=== PATIENT | female | born 1995 | race Caucasian/White ===

== ENCOUNTER 2017-05-28 12:18 | Emergency (ER) | payer MEDICAID ==
[2017-05-28] MEDS ORDERED: ACETAMINOPHEN 325 MG TABLET PO ONE (13:01)
--- NOTE | 2017-05-28 13:02 | ER Document Report ---
HPI - HPI Patient complains to provider of: Sore throat Onset: Other - 2 days Onset/Duration: Persistent Quality of pain: Achy Pain Level: 3 Context: Patient presents complaining of sore throat for the past 2 days. Patient denies any fever. Patient wants to be certain she does not have strep. Associated Symptoms: Sore throat. denies: Fever Exacerbated by: Denies Relieved by: Denies Similar symptoms previously: Yes Recently seen / treated by doctor: No - ROS ROS below otherwise negative: Yes Systems Reviewed and Negative: Yes All other systems reviewed and negative - CONSTITUTIONAL Constitutional: DENIES: Fever - EENT EENT: REPORTS: Sore Throat - RESPIRATORY Respiratory: DENIES: Coughing - GASTROINTESTINAL Gastrointestinal: DENIES: Nausea, Patient vomiting - REPRODUCTIVE LMP: 8 months preg Reproductive: DENIES: : - MUSCULOSKELETAL Musculoskeletal: DENIES: Back Pain, Neck Pain - DERM Skin Color: Normal Skin Problems: None Past Medical History - General Information source: Patient - Social History Smoking Status: Never Smoker Frequency of alcohol use: None Drug Abuse: None 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 IN LAST 30 DAYS: No - HEENT HEENT: Atraumatic, Normocephalic, Pharyngeal Tenderness, Pharyngeal Erythema. negative: Pharyngeal Exudate - NECK Neck: Normal Inspection, Supple. negative: Lymphadenopathy-Left, Lymphadenopathy-Right - RESPIRATORY Respiratory: Breath Sounds Normal, No Respiratory Distress O2 Sat by Pulse Oximetry: 98 - CARDIOVASCULAR Cardiovascular: Regular Rate, Regular Rhythm, No Murmur - MUSCULOSKELETAL/EXTREMETIES Musculoskeletal/Extremeties: MAEW - NEURO Level of Consciousness: Awake, Alert, Appropriate Motor/Sensory: No Motor Deficit - DERM Integumentary: Warm, Dry, No Rash Course - Vital Signs Vital signs: Temp Pulse Resp BP Pulse Ox 98.8 F 86 16 110/78 98 05/28/17 12:32 05/28/17 12:32 05/28/17 12:32 05/28/17 12:32 05/28/17 12:32 - Laboratory Laboratory results interpreted by me: 03/02/18 14:13 Labs- Entire Visit 05/28/17 13:00 Group A Strep Rapid NEGATIVE Discharge - Discharge Clinical Impression: Sore throat (viral) Condition: Stable Disposition: HOME, SELF-CARE Instructions: Acetaminophen, Sore Throat ([facility]) Additional Instructions: Return immediately for any new or worsening symptoms Followup with your primary care provider, call tomorrow to make a followup appointment Throat culture is pending, we will call if you need any different treatment Forms: Return to Work Referrals: NAVIN DAS MD [Primary Care Provider] - 05/31/17
[2017-05-28 14:25] VITALS: BP 108/76
== END 2017-05-28 14:23 | disposition home or self-care (01) ==
LOC: ER 12:18
DX: J02.9 Acute pharyngitis, unspecified (principal); B97.89 Other viral agents as the cause of diseases classified elsewhere
CPT/HCPCS: 99283; 87070; 87880; J3490

== ENCOUNTER 2017-06-07 13:55 | Inpatient (IN) | payer MEDICAID ==
[2017-07-19] MEDS ORDERED: DINOPROSTONE 10 MG VAGINAL INSERT.SR ONE (23:30)
[2017-07-19 23:44] LABS: ABSOLUTE BASOPHILS # (AUTO) 0.1 10^3/uL (0.0-0.2); ABSOLUTE EOSINOPHILS # (AUTO) 0.2 10^3/uL (0.0-0.6); ABSOLUTE MONOCYTES (AUTO) 1.2 10^3/uL (0.1-1.4); ABSOLUTE NEUT (AUTO) 9.7 10^3/uL (1.7-8.2); BASOPHILS % (AUTO) 0.6 % (0-2); EOSINOPHILS % (AUTO) 1.3 % (0-6); HEMATOCRIT 35.2 % (36.0-47.0); HEMOGLOBIN 12.1 g/dL (12.0-15.5); LYMPHOCYTES % (AUTO) 15.3 % (13-45); MEAN CORPUSCULAR HEMOGLOBIN 31.8 pg (27.0-33.4); MEAN CORPUSCULAR HGB CONC 34.5 g/dL (32.0-36.0); MEAN CORPUSCULAR VOLUME 92 fl (80-97); MONOCYTES % (AUTO) 9.2 % (3-13); PLATELET COUNT 225 10^3/uL (150-450); RED BLOOD COUNT 3.82 10^6/uL (3.72-5.28); RED CELL DISTRIBUTION WIDTH 13.5 % (11.5-14.0); SEGMENTED NEUTROPHILS % (AUTO) 73.6 % (42-78); TOTAL CELLS COUNTED % (AUTO) 100 %; WHITE BLOOD COUNT 13.2 10^3/uL (4.0-10.5)
[2017-07-20 00:14] LABS: APPEARANCE,URINE CLOUDY; BILIRUBIN,URINE NEGATIVE (NEGATIVE); COLOR,URINE YELLOW; GLUCOSE, URINE NEGATIVE (NEGATIVE); KETONES,URINE NEGATIVE (NEGATIVE); LEUKOCYTE ESTERASE,URINE LARGE (NEGATIVE); NITRITE,URINE NEGATIVE (NEGATIVE); PROTEIN,URINE NEGATIVE (NEGATIVE); URINE SPECIFIC GRAVITY 1.019; UROBILINOGEN,URINE NEGATIVE mg/dL (<2.0)
[2017-07-20 01:19] LABS: URINE AMPHETAMINES SCREEN NEGATIVE; URINE BARBITURATES SCREEN NEGATIVE; URINE BENZODIAZEPINES SCREEN NEGATIVE; URINE COCAINE SCREEN NEGATIVE; URINE MARIJUANA (THC) SCREEN NEGATIVE; URINE METHADONE SCREEN NEGATIVE; URINE PHENCYCLIDINE SCREEN NEGATIVE
[2017-07-20] MEDS ORDERED: PROMETHAZINE HCL INJ 25 MG/1 ML VIAL ONE (04:36)
[2017-07-20] MEDS ORDERED: NALBUPHINE HCL INJ 10 MG/1 ML AMPULE ONE (04:36)
[2017-07-20] MEDS ORDERED: NALBUPHINE HCL INJ 10 MG/1 ML AMPULE INJ ONE (04:52)
[2017-07-20] MEDS ORDERED: PROMETHAZINE HCL INJ 25 MG/1 ML VIAL IV ONE (04:52)
--- NOTE | 2017-07-20 09:05 | Admission Physical ---
Datetime Report Generated by CPN: 07/20/2017 09:05 CURRENT ADMISSION Hx Assessment: The History has been Reviewed and is Current Chief Complaint: Scheduled Induction of Labor Indication for Induction: IUGR Admit Impression : Term, Intrauterine ; No Active Labor Admit Plan: Admit to Unit; Initiate Labor Induction Protocol ALLERGIES Medication Allergies: No Medication Allergies: No Known Allergies (05/28/2017) Latex: No Latex Allergies OBSTETRICAL HISTORY EDC: 07/27/2017 00:00 : 1 Para: 0 Term: 0 : 0 SAB: 0 IAB: 0 Ectopic: 0 Livin Cesareans: 0 VBACs: 0 Multiple Births: 0 Gestational Diabetes: No Rh Sensitization: No Incompetent Cervix: No JCARLOS: No Infertility: No ART Treatment: No Uterine Anomaly: No IUGR: Yes Hx Previous C/S: No Macrosomia: No Hx Loss/Stillborn: No PIH: No Hx : No Placenta Previa/Abruption: No Depression/PP Depression: No PTL/PROM: No Post Hemorrhage: No Current Procedures: Ultrasound; NST Obstetrical History Comments: present- EDC 07/27/17 SEE RECORDS Alcohol: No Marijuana : No Cocaine: No Other Illicit Drugs: No Cigarettes: Former Smoker. 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: No Heart Disease: No Hosp/Surgery: No Autoimmune Disorder: No Anesthetic Complications: No Kidney Disease: No Abnormal Pap Smear: No Neuro/Epilepsy: No Psychiatric Disorders: No Other Medical Diseases: No Hepatitis/Liver Disease: No Significant Family History: No Varicosities/Phlebitis: No Trauma/Violence : No Thyroid Dysfunction: No INFECTIOUS HISTORY Gonorrhea: No Genital Herpes: Yes Chlamydia: No Tuberculosis: No Syphilis: No Hepatitis: No Rash or Viral Illness: No HPV: No Infectious History Comments: pt reports she has never had a hsv outbreak, learned of infection through bloodwork PHYSICAL EXAM General: Normal HEENT: Deferred Neurologic: Normal Thyroid: Deferred Heart: Normal Lungs: Normal Breast: Deferred Back: Normal Abdomen: Normal Genitourinary Exam: Normal Extremities: Normal DTRs: Deferred Pelvic Type: Adequate Physical Exam Comments: No signs of active HSV infection noted Vital Signs: Reviewed; Within Normal Limits VAGINAL EXAM Dilatation: 5 Effacement: 80 Station: -1 Contraction Comments: 1.5-3 MEMBRANES Membranes: Ruptured Amniotic Fluid Color: Clear FETUS A EGA: 39.0 Monitoring: External US FHR- Baseline: 130 Variability: Moderate 6-25bpm Accelerations: 10X10 Decelerations: None FHR Category: Category I Presentation: Vertex Admit Comment: 22yo @ 39wga admitted into L_D last night for IOL secondary to IUGR. 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 Hx also significant for XANAX use (stopped with pos. ) and THC on NOB urine but denies current use. Transfered from [place] at 31wga. Had cervidil last night, obtained pain meds earlier this AM with cervidil still in place, SROM on exam, cervidil removed without difficulty. Will shower and requesting epidural at this time. Will continue IOL with pitocin as planned. Pt. asked questions and verbalized undertanding. PLANS FOR LABOR AND DELIVERY Labor and Delivery: None Pain Management: Medications; Epidural Feeding Preference: Breast Benefit of Breast Feed Discussed: Yes Circumcision: N/A INFORMED CONSENT Assignment: Jenise Waller MD Signature: with User ID: Richard : with User ID: [email or web address]
[2017-07-20] MEDS ORDERED: MISOPROSTOL 0.2 MG TABLET ONE (09:42)
[2017-07-20] MEDS ORDERED: LIDOCAINE 1% INJ-PF (10 MG/ML) 30 ML SDV ONE (09:43)
[2017-07-20] MEDS ORDERED: EPHEDRINE SULFATE INJ 50 MG/1 ML AMPULE ONE (09:43)
[2017-07-20] MEDS ORDERED: BUPIVACAINE HCL 0.25 % INJ/PF (2.5 MG/1 ML) 30 ML VIAL ONE (09:43)
[2017-07-20] MEDS ORDERED: PHENYLEPHRINE HCL INJ/PF 10 MG/1 ML SDV ONE (09:43)
[2017-07-20] MEDS ORDERED: FENTANYL CITRATE INJ/PF 100 MCG/2 ML AMPUL ONE (09:43)
[2017-07-20] MEDS ORDERED: OXYTOCIN/NORMAL SALINE 20 UNIT/1,000 ML RTUINJ ONE (09:43)
[2017-07-20] MEDS ORDERED: FENTANYL/BUPIVACAINE/NS/PF 300 MCG/150 ML RTUINJ EPI ONE (09:45)
--- NOTE | 2017-07-20 09:48 | L&D Progress Notes ---
PROGRESS NOTES Datetime Report Generated by CPN: 07/20/2017 09:47 PROGRESS NOTE Comment: Correction: Pt. was not SROM on exam this AM. Pt. SROM'ed at 0422 per RN. Currently awaiting on Epidural placement. VAGINAL EXAM Dilatation: 5 Effacement: 80 Station: -1 Contractions: 1.5-3 MEMBRANES Membranes: Ruptured Amniotic Fluid Color: Clear FETUS A Presentation: Vertex SIGNATURE SIGNATURE: [id number] SIGNATURE: [id number] Assignment: Jenise Waller MD Signature: with User ID: Richard : with User ID: [email or web address]
[2017-07-20] MEDS ORDERED: OXYTOCIN/NORMAL SALINE 20 UNIT/1,000 ML RTUINJ IV PRN ×2 (09:49→14:53)
[2017-07-20] MEDS ORDERED: BENZOCAINE/MENTHOL AEROSOL SPRAY 56 ML TOP PRN (14:53)
[2017-07-20] MEDS ORDERED: PROMETHAZINE HCL 25 MG TABLET PO PRN (14:53)
[2017-07-20] MEDS ORDERED: PSEUDOEPHEDRINE HCL 30 MG TABLET PO PRN (14:53)
[2017-07-20] MEDS ORDERED: DIBUCAINE 1% OINTMENT 28 GM TP PRN (14:53)
[2017-07-20] MEDS ORDERED: ACETAMINOPHEN 325 MG TABLET PO PRN (14:53)
[2017-07-20] MEDS ORDERED: DIPH/PERTUSS(ACELL)/TETANUS VAC/PF 0.5 ML SYR (>=10YO) IM PRN (14:53)
[2017-07-20] MEDS ORDERED: NA PHOS,M-B/NA PHOS,DI-BA (ADULT) 133 ML ENEMA PR PRN (14:53)
[2017-07-20] MEDS ORDERED: MEASLES,MUMPS&RUBELLA VACC/PF 0.5 ML VIAL SUBCUT PRN (14:53)
[2017-07-20] MEDS ORDERED: MAGNESIUM HYDROXIDE SUSP 30 ML UDCUP PO PRN (14:53)
[2017-07-20] MEDS ORDERED: PROMETHAZINE HCL INJ 25 MG/1 ML VIAL IV PRN (14:53)
[2017-07-20] MEDS ORDERED: GLYCERIN/WITCH HAZEL LEAF 1 EACH MED..PAD TP PRN (14:53)
[2017-07-20] MEDS ORDERED: ACETAMINOPHEN WITH CODEINE #3 TABLET PO PRN (14:53)
[2017-07-20] MEDS ORDERED: DIPHENHYDRAMINE HCL 25 MG CAPSULE PO PRN (14:53)
[2017-07-20] MEDS ORDERED: PROMETHAZINE HCL 25 MG SUPP.RECT PR PRN (14:53)
[2017-07-20] MEDS ORDERED: ACETAMINOPHEN 650 MG SUPP.RECT PR PRN (14:53)
[2017-07-20] MEDS ORDERED: ACETAMINOPHEN WITH CODEINE #3 TABLET ONE (15:00)
--- NOTE | 2017-07-20 15:38 | Delivery Summary ---
Del Sum A-C Datetime Report Generated by CPN: 07/20/2017 15:38 DELIVERY PERSONNEL DELIVERY PERSONNEL: [id number] Delivery Doctor:: Mercedes Mora CNM Nurse Materials Engineer Certified:: Mercedes Mora CNM Labor and Delivery Nurse:: Jyothi Barnes, branch account manager Nurse:: LUISITO Connell Nursery Nurse:: Brenda Way RN Sas Statistical Programmer/FILM PAINTER: Daxa Medel, PROFESSIONAL BASS FISHERMAN Additional Personnel: : Marco Robertson, RN MATERNAL INFORMATION Delivery Anesthesia: Epidural Medications After Delivery: Pitocin Bolus-Please Comment Meds After Delivery Comment: Pitocin 20 units in 1 L NS bolusing per order Maternal Complications: None Provider Comments: Pt. progressed to c/c/+2 with urge to push, began pushing and with some coaching went on to deliver a viable baby girl. Baby with vigorous respiratory effort and cry at delivery (nursery personnel present for delivery) and placed skin to skin on maternal abdomen. Cord allowe to stop pulsating then clamped x2 and cut by maternal aunt.Placenta delivered spontaneously intact (3vc, short cord, circumvallate placenta noted, cord blood obtained). Repair as stated. Mother and baby remain in room, skin to skin and bonding at this time. LABOR SUMMARY EDC: 07/27/2017 00:00 No. Babies in Womb: 1 Attempted: No Labor Anesthesia: Epidural LABOR INFORMATION Reason for Induction: Intrauterine Growth Retardation Onset of Labor: 07/20/2017 09:05 Complete Dilatation: 07/20/2017 13:02 Cervical Ripening Agents: Cervidil Oxytocin: Induction Group B Beta Strep: Negative Antibiotics # of Doses: 0 Steroids Given: None Reason Steroids Not Administered: Not Applicable MEMBRANES Membranes Rupture Method: Spontaneous Rupture of Membranes: 07/20/2017 04:22 Length of Rupture (hr): 9.03 Amniotic Fluid Color: Clear Amniotic Fluid Amount: Moderate Amniotic Fluid Odor: Normal STAGES OF LABOR Stage 1 hr: 3 Stage 1 min: 57 Stage 2 hr: 0 Stage 2 min: 22 Stage 3 hr: 0 Stage 3 min: 5 Total Time in Labor hr: 4 Total Time in Labor min: 24 VAGINAL DELIVERY Episiotomy: None Laceration #1: Perineal Laceration Extension #1: First Degree Laceration #2: Vaginal Laceration Extension #2: First Degree Laceration Repair: Yes Laceration Repair Note: MLL with vaginal extension repaired with 2-[address] Laceration was hemostatic but needed to be approximated. Pt. tolerated well under epidural anesthesia Sponge Count Correct: N/A Sharps Count Correct: N/A CSECTION DELIVERY Primary Indication: N/A Secondary Indication: N/A CSection Incidence: N/A Labor: N/A Elective: N/A CSection Incision: N/A BABY A INFORMATION Infant Delivery Date/Time: 07/20/2017 13:24 Method of Delivery: Vaginal Born in Route : No : N/A Forceps: N/A Vacuum Extraction: N/A Shoulder Dystocia : No PRESENTATION/POSITION BABY A Presentation: Cephalic Cephalic Presentation: Vertex Vertex Position: Left Occipital Anterior Breech Presentation: N/A PLACENTA INFORMATION BABY A Placenta Delivery Time : 07/20/2017 13:29 Placenta Method of Delivery: Spontaneous Placenta Status: Delivered SCORES BABY A Heart Rate 1 min: >100 bpm Resp Effort 1 min: Good Cry Reflex Irritability 1 min: Cough or Sneeze or Pulls Away Muscle Tone 1 min: Active Motion Color 1 min: Blue/Pale Resuscitation Effort 1 min: Tactile Stimulation SCORE 1 MIN: 8 Heart Rate 5 min: >100 bpm Resp Effort 5 min: Good Cry Reflex Irritability 5 min: Cough or Sneeze or Pulls Away Muscle Tone 5 min: Active Motion Color 5 min: Body [place], Extremities Blue Resuscitation Effort 5 min: N/A SCORE 5 MIN: 9 Resuscitation Effort 10 min: N/A INFORMATION BABY A Gestational Age at Delivery: 39.0 Gestational Status: Full Term- 39- 40.6 Weeks Infant Outcome : Liveborn Infant Condition : Stable Sex: Female IDENTIFICATION BABY A Verification Date/Time: 07/20/2017 14:00 ID Band Number: [id number] Mother's Name Verified: Yes RN Verifying : R KEATING, RN; K LUIS F, RN WEIGHT/LENGTH BABY A Birthweight (gm): 2870 Weight (lb): 6 Infant Weight (oz): 5 Infant Length (in): 18.50 Length (cm): 46.99 CORD INFORMATION BABY A No. Cord Vessels: 3 Nuchal Cord : N/A Cord Blood Taken: Yes-For Storage (Mom's Blood type +) Suction: None ASSESSMENT BABY A Infant Complications: None Physical Findings at Delivery: Within Normal Limits Respirations: Appears Normal Skin to Skin: Yes Skin to Skin Time (min): 60 Oxygen Therapist/ALS Called : No Care By: Leonel Barnes RN/Tom Butler RNLeonel Transferred To: Remains with Mother BABY B INFORMATION : N/A SIGNATURES Assignment: Jenise Waller MD Signature: with User ID: Richard : with User ID: Richard
[2017-07-20] MEDS: FERROUS SULFATE 325 MG TABLET PO SCH (18:06)
[2017-07-20] MEDS: DOCUSATE SODIUM 100 MG CAPSULE PO SCH (18:06)
[2017-07-20] MEDS: IBUPROFEN 800 MG TABLET PO SCH (22:09)
[2017-07-20] MEDS: FAMOTIDINE 20 MG TABLET PO SCH (22:09)
[2017-07-21] MEDS: IBUPROFEN 800 MG TABLET PO SCH ×3 (06:01→22:32)
[2017-07-21 07:28] LABS: HEMATOCRIT 34.4 % (36.0-47.0); MEAN CORPUSCULAR HEMOGLOBIN 32.7 pg (27.0-33.4); MEAN CORPUSCULAR HGB CONC 34.9 g/dL (32.0-36.0); MEAN CORPUSCULAR VOLUME 94 fl (80-97); PLATELET COUNT 196 10^3/uL (150-450); RED BLOOD COUNT 3.68 10^6/uL (3.72-5.28); RED CELL DISTRIBUTION WIDTH 13.8 % (11.5-14.0); WHITE BLOOD COUNT 13.7 10^3/uL (4.0-10.5)
--- NOTE | 2017-07-21 10:08 | PDOC PROGRESS REPORT ---
Subjective-OB Progress Note for:: 07/21/17 Subjective: Doing well, no c/o, holding and snuggling with baby, breast feeding, no c/o Physical Exam (OB) Vital Signs: Temp Pulse Resp BP Pulse Ox 98.2 F 79 17 110/67 99 07/21/17 07:49 07/21/17 07:49 07/21/17 07:49 07/21/17 07:49 07/21/17 07:49 Intake & Output 07/20/17 07/21/17 07/22/17 06:59 06:59 06:59 Output Total 1 Balance -1 Weight 58.2 kg - PIH/Pre-Eclampsia DTR's: 2 + Clonus: Negative Headache: Absent Epigastric Pain: No Visual Changes: No - Lochia Lochia Amount: Small 10-25 ml Lochia Color: Rubra/Red - Abdomen Description: Soft, Flat Hernia Present: No Fundal Description: Firm, Midline Fundal Height: u/u - u/2 Objective-Diagnostic Laboratory: 07/21/17 07:12 07/21/17 07:12 WBC 13.7 H RBC 3.68 L Hgb 12.0 Hct 34.4 L MCV 94 MCH 32.7 MCHC 34.9 RDW 13.8 Plt Count 196 Assessment and Plan(PN) - Assessment and Plan (1) IUGR (intrauterine growth retardation), delivered, current hospitalization Is this a current diagnosis for this admission?: Yes (2) Normal vaginal delivery Is this a current diagnosis for this admission?: Yes - Time Spent with Patient Time with patient: Less than 15 minutes Medications reviewed and adjusted accordingly: Yes - Disposition Anticipated Discharge: Home Within: within 24 hours
[2017-07-21] MEDS: DOCUSATE SODIUM 100 MG CAPSULE PO SCH ×2 (10:30→17:10)
[2017-07-21] MEDS: PRENATAL VITAMIN W DHA CAPSULE PO SCH (10:30)
[2017-07-21] MEDS: FAMOTIDINE 20 MG TABLET PO SCH ×2 (10:30→22:32)
[2017-07-21] MEDS: SENNOSIDES/DOCUSATE 8.6-50 MG 1 EACH TABLET PO SCH (10:30)
[2017-07-21] MEDS: FERROUS SULFATE 325 MG TABLET PO SCH ×2 (10:31→17:10)
[2017-07-22] MEDS: IBUPROFEN 800 MG TABLET PO SCH (05:33)
[2017-07-22 08:21] VITALS: BP 96/51
[2017-07-22] MEDS: DOCUSATE SODIUM 100 MG CAPSULE PO SCH (09:32)
[2017-07-22] MEDS: FERROUS SULFATE 325 MG TABLET PO SCH (09:32)
[2017-07-22] MEDS: PRENATAL VITAMIN W DHA CAPSULE PO SCH (09:33)
[2017-07-22] MEDS: SENNOSIDES/DOCUSATE 8.6-50 MG 1 EACH TABLET PO SCH (09:33)
[2017-07-22] MEDS: FAMOTIDINE 20 MG TABLET PO SCH (09:33)
--- NOTE | 2017-07-22 10:24 | PDOC DISCHARGE SUMMARY ---
Final Diagnosis Discharge Date: 07/22/17 Discharge Data - Discharge Medication Prescriptions: Docusate Sodium [Colace 100 mg Capsule] 100 mg PO BID #60 capsule Ibuprofen [Motrin 800 mg Tablet] 800 mg PO Q8 #60 tablet Home Medications: Vit,Calc76/Iron/Folic [Prenatabs Rx Tablet] 1 each PO DAILY 07/19/17 Docusate Sodium [Colace 100 mg Capsule] 100 mg PO BID #60 capsule 07/22/17 Ibuprofen [Motrin 800 mg Tablet] 800 mg PO Q8 #60 tablet 07/22/17 Gestational Age: 39 Reason(s) for Admission: Induction of Labor, Other - iugr Procedures: NST Intrapartum Procedure(s): Spontaneous Vaginal Delivery Complication(s): Laceration-Perineal Laceration-Degree: 1st - [place] Data Baby 1 Female at 1 minute: 8 at 5 minutes: 9 Weight: 2870 kg Home with Mother: Yes Complications: No - Diagnosis Test Laboratory: Temp Pulse Resp BP Pulse Ox 98.0 F 67 16 96/51 L 98 07/22/17 08:33 07/22/17 08:33 07/22/17 08:33 07/22/17 08:33 07/22/17 08:33 07/19/17 07/19/17 07/21/17 23:32 23:40 07:12 RBC 3.82 3.68 L Hgb 12.1 12.0 Hct 35.2 L 34.4 L Urine Opiates Screen NEGATIVE - Discharge information/Instructions Discharge Activity: No Lifting Over 10 Pounds, No tub bath, Walk Frequently Discharge Diet: Regular Disposition: HOME, SELF-CARE Follow [facility] with: [facility] in: 4, Weeks
== END 2017-07-22 11:42 | disposition home or self-care (01) | DRG 774 ==
LOC: LC 13:55 → EDSTATUS 14:04 → LR 07-19 23:10 → 2S 07-20 15:55
PROVIDERS: ADMIT Obstetrics & Gynecology; ATTEND Obstetrics & Gynecology
PROC: 10E0XZZ Delivery of Products of Conception, External Approach (ICD-10-PCS; principal; 2017-07-20)
PROC: 0HQ9XZZ Repair Perineum Skin, External Approach (ICD-10-PCS; 2017-07-20)
DX: O36.5930 Maternal care for other known or suspected poor fetal growth, third trimester, not applicable or unspecified (principal); O98.32 Other infections with a predominantly sexual mode of transmission complicating childbirth; O70.0 First degree perineal laceration during delivery; Z3A.39 39 weeks gestation of pregnancy; Z37.0 Single live birth
CPT/HCPCS: 36415; 80307; 81005; 85025; 85027; 86592; 86850; 86900; 86901; 88307; 94760; J2300; J2370; J2550; J2590; J3010; J3490